=== PATIENT | female | born 1955 | race Two or more races ===

== ENCOUNTER 2023-04-08 08:37 | Emergency (ER) | payer OTHER ==
[~2023-04-08] VITALS: Ht 162.6 cm; Wt 71.7 kg
[2023-04-08] MEDS ORDERED: GLIMEPIRIDE4 M1 (08:52)
[2023-04-08] MEDS ORDERED: JANUVIA50 MG PO (08:52)
[2023-04-08] MEDS ORDERED: ATORVASTATIN CA20 MG (08:53)
== END 2023-04-08 11:40 | disposition home or self-care (01) ==
LOC: ER 08:37
DX: J86.9 Pyothorax without fistula (principal); Z88.8 Allergy status to other drugs, medicaments and biological substances